=== PATIENT | female | born 2000 | race Caucasian/White ===

== ENCOUNTER 2018-04-20 23:14 | Emergency (ER) | payer OTHER ==
[~2018-04-20] VITALS: Ht 167.6 cm; Wt 54.8 kg
[2018-04-20] MEDS ORDERED: ESTROGEN (23:31)
[2018-04-21] MEDS ORDERED: HYDROcodone/APAP 5/325 TABLET PO ONE
[2018-04-21] MEDS ORDERED: PROPOFOL 10 MG/ML, 20ML ONE (00:22)
[2018-04-21] MEDS ORDERED: BUPIVACAINE/PF 0.5% ONE (00:23)
[2018-04-21] MEDS ORDERED: ONDANSETRON ODT 4 MG PO ONE (00:30)
[2018-04-21] MEDS ORDERED: PROPOFOL 10 MG/ML, 20ML IVPush ONE ×2 (00:30→02:30)
[2018-04-21] MEDS ORDERED: BUPIVACAINE/PF 0.5% INFIL ONE (00:30)
[2018-04-21] MEDS ORDERED: ONDANSETRON ODT 4 MG ONE (01:42)
[2018-04-21] MEDS ORDERED: HYDROcodone/APAP 5/325 TABLET ONE (01:43)
[2018-04-21 01:55] VITALS: BP 109/68
== END 2018-04-21 02:07 | disposition home or self-care (01) ==
LOC: ED 23:41
DX: S52.571A Other intraarticular fracture of lower end of right radius, initial encounter for closed fracture (principal); V00.121A Fall from non-in-line roller-skates, initial encounter; Y93.51 Activity, roller skating (inline) and skateboarding; Y99.8 Other external cause status; Y92.410 Unspecified street and highway as the place of occurrence of the external cause
CPT/HCPCS: 25605; 73100; 73110; 99284; Q0162; 29125